=== PATIENT | female | born 1950 | race Caucasian/White ===

== ENCOUNTER 2022-12-02 05:47 | Emergency (ER) | payer MEDICARE ==
[2022-12-02] MEDS ORDERED: Sodium Chloride 0.9% 10 ML Syringe FLUSH PRN (06:10)
[2022-12-02 06:22] LABS: BASOPHILS ABSOLUTE AUTO 0.02 10^3/uL (0.00-0.10); BASOPHILS PERCENT AUTO 0.2 % (0.0-1.0); EOSINOPHILS ABSOLUTE AUTO 0.02 10^3/uL (0.10-0.30); EOSINOPHILS PERCENT AUTO 0.2 % (1.0-3.0); HEMOGLOBIN 14.2 g/dL (12.0-16.0); IMMATURE GRAN ABSOLUTE AUTO 0.01 10^3/uL (0.00-0.50); IMMATURE GRAN PERCENT AUTO 0.1 % (0.0-5.0); LYMPHOCYTES ABSOLUTE AUTO 0.95 10^3/uL (1.00-4.00); LYMPHOCYTES PERCENT AUTO 11.1 % (20.0-40.0); MEAN CORPUSCULAR HEMOGLOBIN 29.2 pg (27.0-31.0); MEAN CORPUSCULAR HGB CONC 33.8 g/dL (32.0-36.0); MEAN CORPUSCULAR VOLUME 86.2 fL (82.0-92.0); MEAN PLATELET VOLUME 8.8 fL (7.4-10.4); MONOCYTES ABSOLUTE AUTO 0.93 10^3/uL (0.10-0.80); MONOCYTES PERCENT AUTO 10.9 % (2.0-8.0); NEUTROPHILS ABSOLUTE AUTO 6.64 10^3/uL (2.50-7.00); NEUTROPHILS PERCENT AUTO 77.5 % (50.0-70.0); PLATELET COUNT,PLT 169 10^3/uL (150-400); RED BLOOD CELL COUNT 4.87 10^6/uL (3.80-5.50); RED CELL DISTRIBUTION WIDTH 12.7 % (11.5-14.5); WHITE BLOOD CELL COUNT,WBC 8.57 10^3/uL (5.00-10.00)
[2022-12-02 06:27] LABS: APPEARANCE,URINE CLEAR (CLEAR); BILIRUBIN,URINE NEGATIVE (NEGATIVE); COLOR,URINE YELLOW (YELLOW); GLUCOSE,URINE NEGATIVE (NEGATIVE); KETONES,URINE TRACE mg/dL (NEGATIVE); LEUKOCYTE ESTERASE,URINE NEGATIVE (NEGATIVE); NITRITE,URINE NEGATIVE (NEGATIVE); OCCULT BLOOD,URINE MODERATE (NEGATIVE); PROTEIN,URINE 30 mg/dL (NEGATIVE); UROBILINOGEN,URINE 0.2 E.U./dL (0.2-1.0)
[2022-12-02] MEDS ORDERED: HYDROmorphone 1 MG/ML Syringe IM ONE (06:27)
[2022-12-02] MEDS ORDERED: Naloxone 0.4 MG/ML SDV IVPUSH PRN (06:27)
[2022-12-02] MEDS ORDERED: Ondansetron 4 MG Tab.DIS PO ONE (06:27)
[2022-12-02] MEDS ORDERED: Loperamide 2 MG Cap PO ONE (06:29)
[2022-12-02] MEDS ORDERED: HYDROmorphone 1 MG/ML Syringe IVPUSH ONE (06:31)
[2022-12-02 06:37] LABS: WBC,URINE 0-5 /HPF (0-5)
[2022-12-02 06:38] LABS: BACTERIA,URINE RARE /HPF (NONE TO FEW); EPITHELIAL CELLS,URINE FEW /LPF
[2022-12-02 06:49] LABS: ALBUMIN 3.48 g/dL (3.40-5.00); ANION GAP 18.4 mmol/L (5-15); BILIRUBIN TOTAL 0.8 mg/dL (0.2-1.0); CALCIUM 8.3 mg/dL (8.7-10.3); CARBON DIOXIDE,CO2 23.4 mmol/L (21.0-32.0); CREATININE 0.82 mg/dL (0.51-1.17); EST CRCL DRUG DOSING (CG) 45.67 mL/min; POTASSIUM,K 2.8 mmol/L (3.5-5.1)
[2022-12-02] MEDS ORDERED: Ketorolac 30 MG/ML SDV IVPUSH ONE (06:54)
[2022-12-02] MEDS ORDERED: NS with KCl 40mEq 1,000 ML IV SCH (07:00)
== END 2022-12-02 11:00 | disposition home or self-care (01) ==
LOC: KA.ED 05:47
DX: R19.7 Diarrhea, unspecified (principal); M51.37 Other intervertebral disc degeneration, lumbosacral region; R31.9 Hematuria, unspecified; E87.6 Hypokalemia; K57.30 Diverticulosis of large intestine without perforation or abscess without bleeding; R91.8 Other nonspecific abnormal finding of lung field; R79.82 Elevated C-reactive protein (CRP); Z88.6 Allergy status to analgesic agent; Z88.8 Allergy status to other drugs, medicaments and biological substances; Z91.09 Other allergy status, other than to drugs and biological substances
CPT/HCPCS: 74176; 80053; 81001; 82150; 83690; 85025; 86140; 99284; A9270; J1170; J1885; J3480; 96365; 96366; 96375; J3490

== ENCOUNTER 2023-01-25 07:44 | Day surgery (SDC) | payer MEDICARE ==
[2023-01-25] MEDS ORDERED: Sodium Chloride 0.9% 10 ML Syringe FLUSH PRN (08:00)
[2023-01-25] MEDS: Lactated Ringers 1,000 ML IV SCH (08:05)
[2023-01-25] MEDS ORDERED: Propofol 200 MG/20 ML SDV ONE (08:37)
[2023-01-25] MEDS ORDERED: Midazolam 1 MG/ML 2 ML SDV ONE (08:37)
== END 2023-01-25 10:47 | disposition home or self-care (01) ==
LOC: KA.SDS 07:44
PROVIDERS: ATTEND Family Medicine
DX: D12.0 Benign neoplasm of cecum (principal); D12.3 Benign neoplasm of transverse colon; K57.30 Diverticulosis of large intestine without perforation or abscess without bleeding; K52.9 Noninfective gastroenteritis and colitis, unspecified; N28.1 Cyst of kidney, acquired; M65.332 Trigger finger, left middle finger; Z79.899 Other long term (current) drug therapy
CPT/HCPCS: 00811; J2250; J2704; J7120